=== PATIENT | female | born 1980 | race Caucasian/White ===

== ENCOUNTER 2018-02-22 18:09 | Observation (INO) | payer OTHER, MEDICAID ==
[2018-02-22] MEDS ORDERED: NS 1,000 ML IV ONE ×2 (19:16→20:18)
--- NOTE | 2018-02-22 19:16 | EDPHY ---
H & P Time Seen by Provider: 02/22/18 18:55 HPI/ROS: CHIEF COMPLAINT: Black and bloody stools HISTORY OF PRESENT ILLNESS: 37-year-old woman a Clostridium difficile 3 months ago was treated successfully with metronidazole. She also has known gastritis. She presents with 1 week of black stools, with bloody yesterday and bloody today and then brown yellow most recently. She has some epigastric discomfort associated with this. She feels a little bit lightheaded and dizzy but no palpitations and no syncope. Not short of breath. No vomiting and no coffee-ground emesis. Symptoms severe, she has not been able to eat because of the diarrhea and abdominal discomfort. Worse with oral intake. REVIEW OF SYSTEMS: Eye: no change in vision ENT: no sore throat Cardiac: no chest pain or syncope Pulmonary: no cough or SOB Abdomen: HPI Musculoskeletal: no back pain Skin: no rash or bruising Neuro: no headache Constitutional: no fever : no urinary symptoms A comprehensive 10 point review of systems is otherwise negative aside from elements mentioned in the history of present illness. PAST MEDICAL HISTORY: Hemorrhoids, Clostridium difficile Social history: Here with her friend and her friend's therapy dog General Appearance: Alert and conversant, cooperative. Eyes: No scleral icterus. ENT, Mouth: Normal mucous membranes. Respiratory: Normal respiratory effort, breath sounds equal, lungs are clear to auscultation. Cardiovascular: Regular rate and rhythm. Gastrointestinal: Abdomen is soft and has epigastric tenderness but no rebound or guarding. Neurological: Alert, face symmetric, normal motor and sensory in extremities. Skin: Warm and dry, no rashes. Musculoskeletal: No peripheral edema. Psychiatric: Not agitated. Emergency Department course/MDM: Plan for labs including CBC LFT and lipase, stool for occult blood and Clostridium difficile. History be most consistent with upper gastrointestinal bleeding. 2015: results discussed. The patient says she is in severe distress as she really can't eat or drink anything. Her stool was sent for Clostridium difficile but the result is pending, foul-smelling. The patient's symptoms of black stools over the past week which transitioned only today to brownish yellow, clinically it would appear that certainly possible she has acute upper GI bleed over the past week. C. diff pending. Admission for IV fluids and GI consultation, consider EGD. IV Protonix and IV Zofran 4 mg. Smoking Status: Current every day smoker Constitutional: Initial Vital Signs Temperature (C) 36.7 C 02/22/18 18:13 Heart Rate 98 02/22/18 18:13 Respiratory Rate 18 02/22/18 18:13 Blood Pressure 138/95 H 02/22/18 18:13 O2 Sat (%) 94 02/22/18 18:13 O2 Delivery Mode Room Air Allergies/Adverse Reactions: No Known Allergies Allergy (Unverified 02/22/18 18:12) Home Medications: Medication Instructions Recorded Clomipramine HCl 50 mg PO BID 02/22/18 Propranolol HCl [Inderal 10mg (*)] 10 mg PO DAILY PRN 02/22/18 Medical Decision Making Differential Diagnosis: Differential considered including but not limited to UGIB, c diff, gastritis, peptic ulcer. Consult/Admit Bed Type: [facility] 2032, [place] 2042 - Data Points Laboratory Results: Laboratory Results 02/22/18 19:12 02/22/18 19:12 02/22/18 02/22/18 02/22/18 19:40 19:12 19:12 WBC RBC Hgb Hct MCV MCH MCHC RDW Plt Count MPV Neut % (Auto) Lymph % (Auto) [place] % (Auto) Eos % (Auto) Baso % (Auto) Nucleat RBC Rel Count Absolute Neuts (auto) Absolute Lymphs (auto) Absolute Monos (auto) Absolute Eos (auto) Absolute Basos (auto) Absolute Nucleated RBC Immature Gran % Seg Neutrophils % Band Neutrophils % Lymphocytes % Monocytes % Eosinophils % Basophils % Metamyelocytes % Myelocytes % Promyelocytes % Blast Cells % Immature Gran # Absolute Seg Neuts Absolute Band Neuts Absolute Lymphocytes Absolute Monocytes Absolute Eosinophils Absolute Basophils Absolute Metamyelocyte Absolute Myelocytes Absolute Promyelocytes Absolute Plasma Cells RBC/WBC/PLT Morphology Atypical Lymphocytes Absolute Blast Cells Plasma Cells % Platelet Estimate Sodium 138 mEq/L mEq/L (135-145) Potassium 3.3 mEq/L mEq/L (3.3-5.0) Chloride 103 mEq/L mEq/L (97-110) Carbon Dioxide 28 mEq/l mEq/l (22-31) Anion Gap 7 mEq/L L mEq/L (8-16) BUN 4 mg/dL L mg/dL (7-23) Creatinine 0.7 mg/dL mg/dL (0.6-1.0) Estimated GFR > 60 Glucose 92 mg/dL mg/dL (70-100) Calcium 8.7 mg/dL mg/dL (8.5-10.4) Total Bilirubin 0.5 mg/dL mg/dL (0.1-1.4) Conjugated Bilirubin 0.3 mg/dL mg/dL (0.0-0.5) Unconjugated Bilirubin 0.2 mg/dL mg/dL (0.0-1.1) AST 61 IU/L H IU/L (14-46) ALT 65 IU/L H IU/L (9-52) Alkaline Phosphatase 69 IU/L IU/L (38-126) Total Protein 7.1 g/dL g/dL (6.3-8.2) Albumin 3.5 g/dL g/dL (3.5-5.0) Lipase 65 IU/L IU/L (23-300) Beta HCG, Qual NEGATIVE Stool Occult Bld Scrn NEGATIVE (NEGATIVE) 02/22/18 19:12 WBC 8.62 10^3/uL 10^3/uL (3.80-9.50) RBC 5.15 10^6/uL 10^6/uL (4.18-5.33) Hgb 14.9 g/dL g/dL (12.6-16.3) Hct 44.7 % % (38.0-47.0) MCV 86.8 fL fL (81.5-99.8) MCH 28.9 pg pg (27.9-34.1) MCHC 33.3 g/dL g/dL (32.4-36.7) RDW 13.4 % % (11.5-15.2) Plt Count 234 10^3/uL 10^3/uL (150-400) MPV 8.6 fL L fL (8.7-11.7) Neut % (Auto) Not Reported Lymph % (Auto) Not Reported [place] % (Auto) Not Reported Eos % (Auto) Not Reported Baso % (Auto) Not Reported Nucleat RBC Rel Count Not Reported Absolute Neuts (auto) Not Reported Absolute Lymphs (auto) Not Reported Absolute Monos (auto) Not Reported Absolute Eos (auto) Not Reported Absolute Basos (auto) Not Reported Absolute Nucleated RBC Not Reported Immature Gran % Not Reported Seg Neutrophils % 32.0 % % Band Neutrophils % 0 % % Lymphocytes % 62.0 % % Monocytes % 4.0 % % Eosinophils % 2.0 % % Basophils % 0 % % Metamyelocytes % 0 % % Myelocytes % 0 % % Promyelocytes % 0 % % Blast Cells % 0 % % Immature Gran # Not Reported Absolute Seg Neuts 2.76 10^/uL 10^/uL (1.70-6.50) Absolute Band Neuts 0.00 10^3/uL 10^3/uL (0.00-0.70) Absolute Lymphocytes 5.34 10^3/uL H 10^3/uL (1.00-3.00) Absolute Monocytes 0.34 10^3/uL 10^3/uL (0.30-0.80) Absolute Eosinophils 0.17 10^3/uL 10^3/uL (0.03-0.40) Absolute Basophils 0.00 10^3/uL L 10^3/uL (0.02-0.10) Absolute Metamyelocyte 0.00 10^3/mL 10^3/mL (0.00-0.00) Absolute Myelocytes 0.00 10^3/mL 10^3/mL (0.00-0.00) Absolute Promyelocytes 0.00 10^3/uL 10^3/uL (0.00-0.00) Absolute Plasma Cells 0.00 10^3/uL 10^3/uL (0.00-0.00) RBC/WBC/PLT Morphology NORMAL (NORMAL) Atypical Lymphocytes 1+ H Absolute Blast Cells 0.00 10^3/uL 10^3/uL (0.00-0.00) Plasma Cells % 0 % % Platelet Estimate ADEQUATE (ADEQ) Sodium Potassium Chloride Carbon Dioxide Anion Gap BUN Creatinine Estimated GFR Glucose Calcium Total Bilirubin Conjugated Bilirubin Unconjugated Bilirubin AST ALT Alkaline Phosphatase Total Protein Albumin Lipase Beta HCG, Qual Stool Occult Bld Scrn Medications Given: Pantoprazole Sodium (Protonix) 40 mg IVP BID JAREN Stop: 08/21/18 20:59 Last Admin: 02/22/18 21:09 Dose: Not Given Discontinued Medications Sodium Chloride (Ns) 1,000 mls @ 0 mls/hr IV EDNOW ONE; Wide Open PRN Reason: Protocol Stop: 02/22/18 19:17 Last Admin: 06/28/18 19:33 Dose: 1,000 mls Sodium Chloride (Ns) 1,000 mls @ 0 mls/hr IV EDNOW ONE; Wide Open PRN Reason: Protocol Stop: 02/22/18 20:19 Last Admin: 02/22/18 20:34 Dose: 1,000 mls Ondansetron HCl (Zofran) 4 mg IVP EDNOW ONE Stop: 02/22/18 20:16 Last Admin: 02/22/18 20:34 Dose: 4 mg Pantoprazole Sodium (Protonix) 40 mg IVP EDNOW ONE Stop: 02/22/18 20:19 Last Admin: 02/22/18 20:34 Dose: 40 mg Departure - Departure Disposition: [facility] Inpatient Acute Clinical Impression: Abdominal pain Qualifiers: Abdominal location: epigastric Qualified Code(s): R10.13 - Epigastric pain Diarrhea Qualifiers: Diarrhea type: unspecified type Qualified Code(s): R19.7 - Diarrhea, unspecified Condition: Good
[2018-02-22 20:10] LABS: PLATELET COUNT 234 10^3/uL (150-400)
[2018-02-22] MEDS ORDERED: ONDANSETRON 4 MG/2 ML VIAL IVP ONE (20:15)
[2018-02-22] MEDS ORDERED: PANTOPRAZOLE SODIUM 40 MG VIAL IVP ONE (20:18)
[2018-02-22] MEDS ORDERED: ONDANSETRON DISINTEGRATING 4 MG TAB PO PRN (20:47)
[2018-02-22] MEDS ORDERED: ONDANSETRON 4 MG/2 ML VIAL IVP PRN (20:47)
[2018-02-22] MEDS ORDERED: ACETAMINOPHEN 325 MG TAB PO PRN (20:47)
[2018-02-22] MEDS: PANTOPRAZOLE SODIUM 40 MG VIAL IVP SCH (21:09)
[2018-02-22] MEDS ORDERED: ZOLPIDEM TARTRATE 5 MG TAB PO PRN (22:47)
[2018-02-22] MEDS: NS W/ 20 KCl/L 1,000 ML IV SCH (23:39)
--- NOTE | 2018-02-23 01:12 | PDGENHP ---
History and Physical - Chief Complaint Diarrhea - History of Present Illness 37 yo F w/ hx of anxiety and depression presents with diarrhea. Of note, patient was diagnosed with C. Diff 3 months ago with course of metronidazole. 1 week ago she began to experience diarrhea. This has progressed in severity to the point where any PO intake leads to diarrhea. She also complains of abdominal cramping associated with this. Yesterday she noted dark, tarry stools and increased epi-gastric pain, as well. Per her report, she had an EGD about 6 months ago that showed gastritis. She was previously on a PPI but has not been taking this for some time. During my evaluation patient is comfortable with minimal symptoms. Case discussed with Dr. Liu, previous records reviewed. History Information - Allergies/Home Medication List Allergies/Adverse Reactions: No Known Allergies Allergy (Unverified 02/22/18 18:12) Home Medications: Clomipramine HCl 50 mg PO BID 02/22/18 [Last Taken 02/22/18 09:00] Propranolol HCl [Inderal 10mg (*)] 10 mg PO DAILY PRN 02/22/18 [Last Taken 02/22 19:00] I have personally reviewed and updated: family history, medical history - Past Medical History Additional medical history: Depression. Anxiety. Chronically enlarged LN's - Surgical History Reports: cholecystectomy - Family History Additional family history: Asked, denies - Social History Smoking Status: Current every day smoker Review of Systems Review of Systems: ROS: 10pt was reviewed & negative except for what was stated in HPI & below Physical Exam Physical Exam: Temp Pulse Resp BP Pulse Ox 37.1 C 92 16 111/82 H 90 L 02/22/18 22:38 02/22/18 22:38 02/22/18 22:38 02/22/18 22:38 02/22/18 22:38 Constitutional: no apparent distress, obese Eyes: PERRL, EOMI Ears, Nose, Mouth, Throat: moist mucous membranes, no oral mucosal ulcers Cardiovascular: regular rate and rhythym, no murmur, rub, or gallop Respiratory: no respiratory distress, clear to auscultation Gastrointestinal: normoactive bowel sounds, tenderness (Diffuse, worst at epigastrium) Skin: warm, normal color Musculoskeletal: full muscle strength, no muscle tenderness Neurologic: AAOx3, CN II-XII Intact Psychiatric: interacting appropriately, not anxious Lab Data & Imaging Review 02/22/18 19:12 02/22/18 19:12 WBC 8.62 10^3/uL (3.80-9.50) 02/22/18 19:12 RBC 5.15 10^6/uL (4.18-5.33) 02/22/18 19:12 Hgb 14.9 g/dL (12.6-16.3) 02/22/18 19:12 Hct 44.7 % (38.0-47.0) 02/22/18 19:12 MCV 86.8 fL (81.5-99.8) 02/22/18 19:12 MCH 28.9 pg (27.9-34.1) 02/22/18 19:12 MCHC 33.3 g/dL (32.4-36.7) 02/22/18 19:12 RDW 13.4 % (11.5-15.2) 02/22/18 19:12 Plt Count 234 10^3/uL (150-400) 02/22/18 19:12 MPV 8.6 fL (8.7-11.7) L 02/22/18 19:12 Neut % (Auto) Not Reported 02/22/18 19:12 Lymph % (Auto) Not Reported 02/22/18 19:12 [place] % (Auto) Not Reported 02/22/18 19:12 Eos % (Auto) Not Reported 02/22/18 19:12 Baso % (Auto) Not Reported 02/22/18 19:12 Nucleat RBC Rel Count Not Reported 02/22/18 19:12 Absolute Neuts (auto) Not Reported 02/22/18 19:12 Absolute Lymphs (auto) Not Reported 02/22/18 19:12 Absolute Monos (auto) Not Reported 02/22/18 19:12 Absolute Eos (auto) Not Reported 02/22/18 19:12 Absolute Basos (auto) Not Reported 02/22/18 19:12 Absolute Nucleated RBC Not Reported 02/22/18 19:12 Immature Gran % Not Reported 02/22/18 19:12 Seg Neutrophils % 32.0 % 02/22/18 19:12 Band Neutrophils % 0 % 02/22/18 19:12 Lymphocytes % 62.0 % 02/22/18 19:12 Monocytes % 4.0 % 02/22/18 19:12 Eosinophils % 2.0 % 02/22/18 19:12 Basophils % 0 % 02/22/18 19:12 Metamyelocytes % 0 % 02/22/18 19:12 Myelocytes % 0 % 02/22/18 19:12 Promyelocytes % 0 % 02/22/18 19:12 Blast Cells % 0 % 02/22/18 19:12 Immature Gran # Not Reported 02/22/18 19:12 Absolute Seg Neuts 2.76 10^/uL (1.70-6.50) 02/22/18 19:12 Absolute Band Neuts 0.00 10^3/uL (0.00-0.70) 02/22/18 19:12 Absolute Lymphocytes 5.34 10^3/uL (1.00-3.00) H 02/22/18 19:12 Absolute Monocytes 0.34 10^3/uL (0.30-0.80) 02/22/18 19:12 Absolute Eosinophils 0.17 10^3/uL (0.03-0.40) 02/22/18 19:12 Absolute Basophils 0.00 10^3/uL (0.02-0.10) L 02/22/18 19:12 Absolute Metamyelocyte 0.00 10^3/mL (0.00-0.00) 02/22/18 19:12 Absolute Myelocytes 0.00 10^3/mL (0.00-0.00) 02/22/18 19:12 Absolute Promyelocytes 0.00 10^3/uL (0.00-0.00) 02/22/18 19:12 Absolute Plasma Cells 0.00 10^3/uL (0.00-0.00) 02/22/18 19:12 RBC/WBC/PLT Morphology NORMAL (NORMAL) 02/22/18 19:12 Atypical Lymphocytes 1+ H 02/22/18 19:12 Absolute Blast Cells 0.00 10^3/uL (0.00-0.00) 02/22/18 19:12 Plasma Cells % 0 % 02/22/18 19:12 Platelet Estimate ADEQUATE (ADEQ) 02/22/18 19:12 Sodium 138 mEq/L (135-145) 02/22/18 19:12 Potassium 3.3 mEq/L (3.3-5.0) 02/22/18 19:12 Chloride 103 mEq/L (97-110) 02/22/18 19:12 Carbon Dioxide 28 mEq/l (22-31) 02/22/18 19:12 Anion Gap 7 mEq/L (8-16) L 02/22/18 19:12 BUN 4 mg/dL (7-23) L 02/22/18 19:12 Creatinine 0.7 mg/dL (0.6-1.0) 02/22/18 19:12 Estimated GFR > 60 02/22/18 19:12 Glucose 92 mg/dL (70-100) 02/22/18 19:12 Calcium 8.7 mg/dL (8.5-10.4) 02/22/18 19:12 Total Bilirubin 0.5 mg/dL (0.1-1.4) 02/22/18 19:12 Conjugated Bilirubin 0.3 mg/dL (0.0-0.5) 02/22/18 19:12 Unconjugated Bilirubin 0.2 mg/dL (0.0-1.1) 02/22/18 19:12 AST 61 IU/L (14-46) H 02/22/18 19:12 ALT 65 IU/L (9-52) H 02/22/18 19:12 Alkaline Phosphatase 69 IU/L (38-126) 02/22/18 19:12 Total Protein 7.1 g/dL (6.3-8.2) 02/22/18 19:12 Albumin 3.5 g/dL (3.5-5.0) 02/22/18 19:12 Lipase 65 IU/L (23-300) 02/22/18 19:12 Beta HCG, Qual NEGATIVE 02/22/18 19:12 Stool Occult Bld Scrn NEGATIVE (NEGATIVE) 02/22/18 19:40 Assessment & Plan Assessment: 37 yo F w/ hx of recent C. Diff infection p/w diarrhea. Plan: 1. Diarrhea - Suspicious for recurrent C. Diff noting associated cramping and severity of symptoms. - GI PCR pending 2. Melena - Presents on day prior to admission, FOBT negative in the ED. Patient is hemodynamically stable with normal H/H. - Monitor CBC - GI consulted, appreciate assistance - NPO @ DC for possible EGD tomorrow 3. Anxiety, depression - Continue home medications Diet - NPO @ DC Code - Full Ppx - SCDs Dispo - Admit under observation status
[2018-02-23] MEDS: PANTOPRAZOLE SODIUM 40 MG VIAL IVP SCH (09:59)
[2018-02-23] MEDS ORDERED: PROPRANOLOL HCL 10 MG TAB PO PRN (10:44)
--- NOTE | 2018-02-23 11:41 | ASMTCMCOM ---
CM Note CM Note Notes: Pt's chart reviewed for D/C planning. Pt is a 37 y/o female with a recent hx of C diff ( 3 months ago ). She presented in the ED with diarrhea which had existed for 7 days. She has a hx of anxiety and depression. Prior to hospitalization she had lived independently. It is likely that she will have no CM needs identified upon D/C. CM will follow. D/C Plan: Anticipate independent. Date Signed: 02/23/2018 11:41 AM Electronically Signed By:Ashley Simmons
[2018-02-23] MEDS ORDERED: NICOTINE 21 MG/24 HR PATCH TD SCH (12:30)
[2018-02-23] MEDS: NS W/ 20 KCl/L 1,000 ML IV SCH (12:34)
--- NOTE | 2018-02-23 15:06 | GCON ---
[f rep st] CONSULTATION CONSULTING PROVIDER: Shital Chua. REASON FOR CONSULTATION: Diarrhea. Dear Chencho Chua, Thank you very kindly for asking me to evaluate Ms. Patel in consultation for a chief complaint of diarrhea. She was admitted through the emergency room last night for epigastric discomfort and diar nathalia. She describes one episode of a dark bowel movement yesterday, but since then, her stools have been loose, watery, and pea green in color with a very foul odor. She had Clostridium difficile coli tis that was antibiotic related about 2 months ago, which was treated successfully and she was concer brad she may have a recurrent Clostridium difficile infection, but her stool PCR is negative for patho gens including C diff. She describes urgent, meal associated diarrhea that has been somewhat chronic . The diarrhea seems to have worsened more recently which prompted her visit to the emergency room, but in talking with her, the symptoms have been very long-standing perhaps over several years in dura tion. She has had a previous gastroenterology workup for her diarrhea, which has been unremarkable a nd has included an upper endoscopy, colonoscopy, and even an endoscopic ultrasound, which showed poss ible features of chronic pancreatitis, but supplemental Creon enzymes have made no benefit. I am not certain as to the other workup that has been done, but it is also of note that her mother has diarrh ea predominant irritable bowel syndrome. She also has underlying anxiety and depression, which can s ometimes be more common in patients with irritable bowel syndrome. Ms. Patel denies any recent antibiotic use. There has been no well or mountain water use, no fore ign travel, no sick contacts and no initiation of new medications. She has had some small amounts of bright red hematochezia, but in 2016 with her colonoscopy she was described as having larger interna l hemorrhoids and feels that the bleeding is related to this. The bleeding is painless. She has had no overt melena other than just the one darker bowel movement yesterday. Her abdominal pain is some what diffuse and crampy and it is relieved after having a bowel movement. Her CBC is normal. Her ch emistry shows mild elevations in her transaminases in the low 60s and she does have a known history o f fatty liver and has had a previous cholecystectomy. Her remaining liver tests are normal. Her lip ase is normal. Her test is negative. She was concerned over the possibility of having HIV illness and was wondering if we could run an HIV test for her. She says this seems to be due to sex ual partner contact. She was not more descriptive of the exposure risk. She has no history of IV dr ug use. PAST MEDICAL HISTORY: Significant for depression, anxiety, antibiotic-related Clostridium difficile colitis, a possibility of having some element of chronic pancreatitis on an endoscopic ultrasound whi leander was given a trial of Creon, but this was not helpful, fatty liver disease. She has also had chron ic lymphadenopathy to the head and neck for unclear reasons. Also, palpitations. PAST SURGICAL HISTORY: Cholecystectomy. MEDICATION LIST: She is on clomipramine 50 mg twice daily and propranolol 10 mg daily, which she zacarias es for palpitations. ALLERGIES: None. 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 She has a stable significant other. She has one biologic daughter at 15. No substance abuse. Daily tobacco use. No alcohol use. FAMILY HISTORY: Significant for a mom with diarrhea predominant irritable bowel syndrome. There is no family history of pancreatic disease or peptic ulcer disease. REVIEW OF SYSTEMS: CONSTITUTIONAL: General malaise, poor appetite. No weight loss. No fever. No chills. No night sweats. HEENT: Denies headache. She denies epistaxis, rhinorrhea, ear pain, diff iculty swallowing, or odynophagia. She does report having chronically enlarged lymph nodes in the he ad and neck. PULMONARY: No shortness of breath or cough. CARDIOVASCULAR: No chest pain or dyspnea with exertion. GASTROINTESTINAL: Chronic diarrhea, generalized abdominal pain, small episodes of b right red hematochezia that is painless, maybe one episode of a dark bowel movement, but this is uncl ear whether it truly represents melena. No heartburn. No chest pain. No dysphagia. No vomiting. No nausea. No hematemesis. RHEUMATOLOGIC: No joint pain or swelling. DERMATOLOGIC: No rash or pr uritus. No jaundice. PSYCHIATRIC: She says there has been anxiety and depression, but this is well managed on her current medicines and has not been more problematic lately. ENDOCRINE: No heat or c old intolerance. No polyuria or polydipsia. LYMPH: For swollen lymph nodes in her head and neck, p redominantly on the left. PHYSICAL EXAMINATION: VITAL SIGNS: Blood pressure is 129/77, heart rate is 90, respirations are 12, oxygenation is 94% on room air, temperature is 36.8. GENERAL: Healthy female in no acute distress. HEENT: Normocephalic, atraumatic. NECK: Supple. HEENT: Oropharynx is clear. There are some sm all shoddy nodes to the anterior cervical chain and to the periarticular area that are nontender and mobile. LUNGS: Clear to auscultation bilaterally. CARDIOVASCULAR: Regular rate and rhythm without murmur, rub, or gallop. GI: Abdomen is soft, nontender, nondistended. No organomegaly. No reboun d or guarding. MUSCULOSKELETAL: No joint deformity, swelling, or warmth. DERMATOLOGIC: No rash or jaundice. NEUROLOGIC: Alert to person, place, and time. Cranial nerves 2-12 are normal. Motor no nfocal. DATABASE: Includes the following laboratory: Sodium 138, potassium 3.3, chloride 103, bicarbonate 2 8, BUN 4, creatinine 0.7, glucose 92, calcium 8.7, total bilirubin 0.5, AST 61, ALT 65, alkaline phos phatase 69, total protein 7.1, albumin 3.5, lipase 65. Beta HCG negative. White blood count 8.6, he matocrit 44.7, platelets are 234. Stool PCR is negative for pathogens and negative for C diff. IMPRESSION: 1. Chronic diarrhea. 2. Generalized abdominal pain. 3. Elevated transaminases, most consistent with fatty liver disease. RECOMMENDATIONS: 1. We will perform an HIV test at the patient's request. This is reasonable given her exposure hist ory with what sounds like perhaps sexual contact exposure. She has verbally consented to the perform ance of the HIV test and I will arrange this. 2. Regular diet. 3. I would not proceed with endoscopy given that her blood count is normal, her BUN is non-elevated, and she is having green-colored diarrhea currently. 4. I do not believe her diarrhea represents recurrent C diff given the negative PCR study. 5. It is likely she has more of a chronic functional bowel disorder probably best characterized by d iarrhea predominate irritable bowel syndrome. She will clearly need outpatient GI followup for this to help make a better diagnosis of the cause of the diarrhea and to review records of her previous ga strointestinal workup. 6. She has a normal lipase and I do not believe this diarrhea likely represents steatorrhea or pancr eatic insufficiency as she does not describe clinically steatorrhea and had no improvement with Creon . We will need to review her endoscopic ultrasound findings. 7. You can use Imodium as needed to help with her diarrhea, although interesting, she has had no jenny rrhea since being admitted to the hospital. 8. I would see if we can discharge her tomorrow without further workup. Her elevated liver tests ar e likely fatty liver and there are no other concerning clinical or biochemical features. I would not initiate any further inpatient gastroenterology workup. 9. Please call with any urgent questions or problems. Otherwise, please arrange for outpatient GI c are. /[id number]/MODL
--- NOTE | 2018-02-23 15:43 | HOSPPROG ---
Hospitalist Progress Note Assessment/Plan: 37 yo F w/ hx of recent C. Diff infection p/w diarrhea. First encounter, chart reviewed. D/W Dr Schaeffer. Plan: 1. Diarrhea -none since admission -not recurrent C. Diff -GI PCR pending 2. Melena - Presents on day prior to admission, - FOBT negative in the ED. -Patient is hemodynamically stable with normal H/H. - Monitor CBC - GI consulted, appreciate assistance - no EGD indicated. Pt has had extensive workup -likely IBS vs second gain 3. Anxiety, depression - Continue home medications -stable 4.tobacco -patch Diet - Regular diet Code - Full Ppx - SCDs Dispo - change to inpt status requires further care in hospital setting unable to tolerate po currently hope to dc home in am Subjective: Still having abd pain. No diarrhea. No vomitting Objective: Vital Signs Temp Pulse Resp BP Pulse Ox 36.8 C 90 12 129/77 H 94 02/23/18 11:01 02/23/18 11:01 02/23/18 11:01 02/23/18 11:01 02/23/18 11:01 Laboratory Results 02/23/18 13:47 02/22/18 02/23/18 02/24/18 05:59 05:59 05:59 Intake Total 1999 Balance 1999 - Physical Exam Constitutional: appears nourished, obese, uncomfortable Eyes: PERRL, anicteric sclera, EOMI Ears, Nose, Mouth, Throat: moist mucous membranes, hearing normal, ears appear normal Cardiovascular: No JVD, No tachycardia, No edema Respiratory: no respiratory distress, no rales or rhonchi, reduced air movement Gastrointestinal: normoactive bowel sounds, No tenderness, No ascites Skin: warm, normal color, No mottled Musculoskeletal: normal joint ROM, no joint effusions, generalized weakness Neurologic: AAOx3 Psychiatric: not anxious, not encephalopathic, thought process linear, poor insight ICD10 Worksheet Patient Problems: Problems Problem Status Onset Abdominal pain Acute Diarrhea Acute
[2018-02-23 17:58] LABS: HIV TYPE 1 AND 2 NEGATIVE (NEGATIVE)
[2018-02-23] MEDS ORDERED: KETOROLAC 15 MG/1 ML SDV IVP SCH (18:00)
[2018-02-23 19:05] VITALS: BP 133/83
--- NOTE | 2018-03-22 08:41 | GPROG ---
[f rep st] PROGRESS NOTE Discharge order for the patient. /[id number]/[id number]
== END 2018-02-23 19:33 | disposition left against medical advice (07) ==
LOC: INTOOBSV 20:47 → OBSVTOIN 20:47 → F3E 22:21
PROVIDERS: ADMIT Internal Medicine; ATTEND Internal Medicine
DX: R19.7 Diarrhea, unspecified (principal); R19.5 Other fecal abnormalities; F41.9 Anxiety disorder, unspecified; F32.9 Major depressive disorder, single episode, unspecified; E66.9 Obesity, unspecified
CPT/HCPCS: 96361; 96374; 96375; 99285; G0378; J1885; J2405